=== PATIENT | female | born 1960 | race American Indian/Alaskan Native ===

== ENCOUNTER 2017-12-25 17:10 | Inpatient (IN) | payer OTHER ==
--- NOTE | 2017-12-25 18:51 | Emergency Department Report ---
ED Altered Mental Status HPI - General Chief Complaint: Altered Mental Status Stated Complaint: AMS Time Seen by Provider: 12/25/17 18:51 Source: patient, EMS Mode of arrival: Stretcher Limitations: Altered Mental Status - History of Present Illness Initial Comments: According to the EMS, patient was altered and confused while she was in the mental home. Patient denies any problem currently. MD Complaint: altered mental status, confusion -: Sudden Severity: moderate Consistency of Symptoms: unknown Context: unknown Associated Symptoms: denies other symptoms - Related Data Previous Rx's Medication Instructions Recorded Last Taken Type Cyclobenzaprine HCl [Flexeril 5 MG 5 mg PO PRN #12 tablet 06/19/16 Unknown Rx TAB] Allergies Allergy/AdvReac Type Severity Reaction Status Date / Time No Known Allergies Allergy Unverified 06/19/16 17:33 ED Review of Systems ROS: Stated complaint: AMS Other details as noted in HPI Comment: All other systems reviewed and negative Constitutional: denies: chills, fever Eyes: denies: vision change ENT: denies: ear pain, hearing loss Respiratory: denies: cough, shortness of breath Cardiovascular: denies: chest pain, palpitations Endocrine: no symptoms reported Gastrointestinal: denies: abdominal pain, nausea, vomiting, diarrhea Genitourinary: denies: urgency, frequency Musculoskeletal: denies: back pain, joint swelling Skin: denies: rash, lesions Neurological: confusion. denies: headache, weakness, numbness, paresthesias Psychiatric: denies: anxiety, depression Hematological/Lymphatic: denies: easy bleeding, easy bruising ED Past Medical Hx - Past Medical History Previous Medical History?: Yes Hx Hypertension: Yes Hx Psychiatric Treatment: Yes (depression) - Surgical History Past Surgical History?: Yes Additional Surgical History: knee. - Social History Smoking Status: Never Smoker Substance Use Type: Alcohol - Medications Home Medications: Home Medications Medication Instructions Recorded Confirmed Last Taken Type Cyclobenzaprine HCl [Flexeril 5 MG 5 mg PO PRN #12 tablet 06/19/16 12/25/17 Unknown Rx TAB] ED Physical Exam - General Limitations: Altered Mental Status General appearance: alert, in no apparent distress - Head Head exam: Present: atraumatic, normocephalic, normal inspection - Eye Eye exam: Present: normal appearance, PERRL, EOMI, scleral icterus Pupils: Present: normal accommodation - ENT ENT exam: Present: normal exam, normal orophraynx, mucous membranes moist - Neck Neck exam: Present: normal inspection, full ROM. Absent: tenderness - Respiratory Respiratory exam: Present: normal lung sounds bilaterally. Absent: respiratory distress, wheezes, rhonchi - Cardiovascular Cardiovascular Exam: Present: normal rhythm, tachycardia, normal heart sounds - GI/Abdominal GI/Abdominal exam: Present: soft, normal bowel sounds. Absent: distended, tenderness, guarding, rebound - Extremities Exam Extremities exam: Present: normal inspection, full ROM, normal capillary refill - Back Exam Back exam: Present: normal inspection, full ROM. Absent: tenderness - Neurological Exam Neurological exam: Present: alert, oriented X3, CN II-XII intact - Psychiatric Psychiatric exam: Present: normal affect, flat affect - Skin Skin exam: Present: warm, dry, intact, normal color - Assessment Assessment Interval: Baseline - Level of Consciousness 1a. Level of Consciousness: alert - LOC Questions 1b. LOC Questions: answers 1 question correctly - LOC Command 1c. LOC Commands: performs tasks correctly - Best Gaze 2. Best Gaze: normal - Visual 3. Visual: no visual loss - Facial Palsy 4. Facial Palsy: normal symmetrical movement - Motor Arm 5b. Motor Arm Right: no drift 5a. Motor Arm Left: no drift - Motor Leg 6a. Motor Leg Left: no drift 6b. Motor Leg Right: no drift - Limb Ataxia 7. Limb Ataxia: absent - Sensory 8. Sensory: normal - Best Language 9. Best Language: no aphasia - Dysarthria 10. Dysarthria: normal - Extinction and Inattention 11. Extinction/Inattention: no abnormality - Scoring Total Score: 1 Stroke Severity: Minor Stroke ED Course Vital Signs 12/25/17 12/25/17 18:23 19:46 Temperature 99.4 F Pulse Rate 120 H 120 H Respiratory 16 16 Rate Blood Pressure 126/77 [Left] O2 Sat by Pulse 100 Oximetry - Reevaluation(s) Reevaluation #1: 12/26/17 00:23 I consulted the tele Neurologist conference producer Dr López. He recommed admitting patient in the hospital for further stroke workup. Patient will be admitted by Dr Syeda Luis for further evaluation and management. - Lab Data Result diagrams: 12/25/17 19:07 12/25/17 19:07 Lab Results 12/25/17 12/25/17 12/25/17 Range/Units 19:07 19:07 19:07 WBC 10.6 (4.5-11.0) K/mm3 RBC 2.57 L (3.65-5.03) M/mm3 Hgb 8.9 L (10.1-14.3) gm/dl Hct 26.6 L (30.3-42.9) % MCV 103 H (79-97) fl MCH 35 H (28-32) pg MCHC 34 (30-34) % RDW 18.2 H (13.2-15.2) % Plt Count 175 (140-440) K/mm3 Lymph % (Auto) 17.0 (13.4-35.0) % [place] % (Auto) 10.1 H (0.0-7.3) % Eos % (Auto) 0.3 (0.0-4.3) % Baso % (Auto) 0.4 (0.0-1.8) % Lymph # 1.8 (1.2-5.4) K/mm3 [place] # 1.1 H (0.0-0.8) K/mm3 Eos # 0.0 (0.0-0.4) K/mm3 Baso # 0.0 (0.0-0.1) K/mm3 Seg Neutrophils % 72.2 H (40.0-70.0) % Seg Neutrophils # 7.7 (1.8-7.7) K/mm3 PT (12.2-14.9) Sec. INR (0.87-1.13) APTT (24.2-36.6) Sec. Sodium 130 L (137-145) mmol/L Potassium 4.1 (3.6-5.0) mmol/L Chloride 91.9 L (98-107) mmol/L Carbon Dioxide 21 L (22-30) mmol/L Anion Gap 21 mmol/L BUN 4 L (7-17) mg/dL Creatinine 0.3 L (0.7-1.2) mg/dL Estimated GFR > 60 ml/min BUN/Creatinine Ratio 13 % Glucose 126 H (65-100) mg/dL Calcium 8.2 L (8.4-10.2) mg/dL Magnesium (1.7-2.3) mg/dL Total Bilirubin 6.40 H (0.1-1.2) mg/dL AST 174 H (5-40) units/L ALT 42 (7-56) units/L Alkaline Phosphatase 335 H (35-129) units/L Ammonia (25-60) umol/L Total Protein 8.1 (6.3-8.2) g/dL Albumin 3.4 L (3.9-5) g/dL Albumin/Globulin Ratio 0.7 % TSH 3.670 (0.270-4.200) mlU/mL Urine Color (Yellow) Urine Turbidity (Clear) Urine pH (5.0-7.0) Ur Specific [place] (1.003-1.030) Urine Protein (Negative) mg/dL Urine Glucose (UA) (Negative) mg/dL Urine Ketones (Negative) mg/dL Urine Blood (Negative) Urine Nitrite (Negative) Urine Bilirubin (Negative) Urine Ictotest (Negative) Urine Urobilinogen (<2.0) mg/dL Ur Leukocyte Esterase (Negative) Urine WBC (Auto) (0.0-6.0) /HPF Urine RBC (Auto) (0.0-6.0) /HPF Salicylates (2.8-20.0) mg/dL Urine Opiates Screen Urine Methadone Screen Acetaminophen (10.0-30.0) ug/mL Ur Barbiturates Screen Ur Phencyclidine Scrn Ur Amphetamines Screen U Benzodiazepines Scrn Urine Cocaine Screen U Marijuana (THC) Screen Drugs of Abuse Note Plasma/Serum Alcohol (0-0.07) % 12/25/17 12/25/17 12/25/17 Range/Units 19:07 19:16 19:16 WBC (4.5-11.0) K/mm3 RBC (3.65-5.03) M/mm3 Hgb (10.1-14.3) gm/dl Hct (30.3-42.9) % MCV (79-97) fl MCH (28-32) pg MCHC (30-34) % RDW (13.2-15.2) % Plt Count (140-440) K/mm3 Lymph % (Auto) (13.4-35.0) % [place] % (Auto) (0.0-7.3) % Eos % (Auto) (0.0-4.3) % Baso % (Auto) (0.0-1.8) % Lymph # (1.2-5.4) K/mm3 [place] # (0.0-0.8) K/mm3 Eos # (0.0-0.4) K/mm3 Baso # (0.0-0.1) K/mm3 Seg Neutrophils % (40.0-70.0) % Seg Neutrophils # (1.8-7.7) K/mm3 PT 14.8 (12.2-14.9) Sec. INR 1.10 (0.87-1.13) APTT 36.8 H (24.2-36.6) Sec. Sodium (137-145) mmol/L Potassium (3.6-5.0) mmol/L Chloride (98-107) mmol/L Carbon Dioxide (22-30) mmol/L Anion Gap mmol/L BUN (7-17) mg/dL Creatinine (0.7-1.2) mg/dL Estimated GFR ml/min BUN/Creatinine Ratio % Glucose (65-100) mg/dL Calcium (8.4-10.2) mg/dL Magnesium (1.7-2.3) mg/dL Total Bilirubin (0.1-1.2) mg/dL AST (5-40) units/L ALT (7-56) units/L Alkaline Phosphatase (35-129) units/L Ammonia 79.0 H (25-60) umol/L Total Protein (6.3-8.2) g/dL Albumin (3.9-5) g/dL Albumin/Globulin Ratio % TSH (0.270-4.200) mlU/mL Urine Color (Yellow) Urine Turbidity (Clear) Urine pH (5.0-7.0) Ur Specific [place] (1.003-1.030) Urine Protein (Negative) mg/dL Urine Glucose (UA) (Negative) mg/dL Urine Ketones (Negative) mg/dL Urine Blood (Negative) Urine Nitrite (Negative) Urine Bilirubin (Negative) Urine Ictotest (Negative) Urine Urobilinogen (<2.0) mg/dL Ur Leukocyte Esterase (Negative) Urine WBC (Auto) (0.0-6.0) /HPF Urine RBC (Auto) (0.0-6.0) /HPF Salicylates (2.8-20.0) mg/dL Urine Opiates Screen Urine Methadone Screen Acetaminophen (10.0-30.0) ug/mL Ur Barbiturates Screen Ur Phencyclidine Scrn Ur Amphetamines Screen U Benzodiazepines Scrn Urine Cocaine Screen U Marijuana (THC) Screen Drugs of Abuse Note Plasma/Serum Alcohol < 0.01 (0-0.07) % 12/25/17 12/25/17 12/25/17 Range/Units 19:16 19:16 19:46 WBC (4.5-11.0) K/mm3 RBC (3.65-5.03) M/mm3 Hgb (10.1-14.3) gm/dl Hct (30.3-42.9) % MCV (79-97) fl MCH (28-32) pg MCHC (30-34) % RDW (13.2-15.2) % Plt Count (140-440) K/mm3 Lymph % (Auto) (13.4-35.0) % [place] % (Auto) (0.0-7.3) % Eos % (Auto) (0.0-4.3) % Baso % (Auto) (0.0-1.8) % Lymph # (1.2-5.4) K/mm3 [place] # (0.0-0.8) K/mm3 Eos # (0.0-0.4) K/mm3 Baso # (0.0-0.1) K/mm3 Seg Neutrophils % (40.0-70.0) % Seg Neutrophils # (1.8-7.7) K/mm3 PT (12.2-14.9) Sec. INR (0.87-1.13) APTT (24.2-36.6) Sec. Sodium (137-145) mmol/L Potassium (3.6-5.0) mmol/L Chloride (98-107) mmol/L Carbon Dioxide (22-30) mmol/L Anion Gap mmol/L BUN (7-17) mg/dL Creatinine (0.7-1.2) mg/dL Estimated GFR ml/min BUN/Creatinine Ratio % Glucose (65-100) mg/dL Calcium (8.4-10.2) mg/dL Magnesium (1.7-2.3) mg/dL Total Bilirubin (0.1-1.2) mg/dL AST (5-40) units/L ALT (7-56) units/L Alkaline Phosphatase (35-129) units/L Ammonia (25-60) umol/L Total Protein (6.3-8.2) g/dL Albumin (3.9-5) g/dL Albumin/Globulin Ratio % TSH (0.270-4.200) mlU/mL Urine Color [place] (Yellow) Urine Turbidity Clear (Clear) Urine pH 8.0 H (5.0-7.0) Ur Specific [place] 1.006 (1.003-1.030) Urine Protein <15 mg/dl (Negative) mg/dL Urine Glucose (UA) Neg (Negative) mg/dL Urine Ketones Neg (Negative) mg/dL Urine Blood Neg (Negative) Urine Nitrite Neg (Negative) Urine Bilirubin Sm (Negative) Urine Ictotest Negative (Negative) Urine Urobilinogen 4.0 (<2.0) mg/dL Ur Leukocyte Esterase Tr (Negative) Urine WBC (Auto) < 1.0 (0.0-6.0) /HPF Urine RBC (Auto) < 1.0 (0.0-6.0) /HPF Salicylates < 0.3 L (2.8-20.0) mg/dL Urine Opiates Screen Urine Methadone Screen Acetaminophen < 5.0 L (10.0-30.0) ug/mL Ur Barbiturates Screen Ur Phencyclidine Scrn Ur Amphetamines Screen U Benzodiazepines Scrn Urine Cocaine Screen U Marijuana (THC) Screen Drugs of Abuse Note Plasma/Serum Alcohol (0-0.07) % 12/25/17 12/25/17 Range/Units 19:46 20:41 WBC (4.5-11.0) K/mm3 RBC (3.65-5.03) M/mm3 Hgb (10.1-14.3) gm/dl Hct (30.3-42.9) % MCV (79-97) fl MCH (28-32) pg MCHC (30-34) % RDW (13.2-15.2) % Plt Count (140-440) K/mm3 Lymph % (Auto) (13.4-35.0) % [place] % (Auto) (0.0-7.3) % Eos % (Auto) (0.0-4.3) % Baso % (Auto) (0.0-1.8) % Lymph # (1.2-5.4) K/mm3 [place] # (0.0-0.8) K/mm3 Eos # (0.0-0.4) K/mm3 Baso # (0.0-0.1) K/mm3 Seg Neutrophils % (40.0-70.0) % Seg Neutrophils # (1.8-7.7) K/mm3 PT (12.2-14.9) Sec. INR (0.87-1.13) APTT (24.2-36.6) Sec. Sodium (137-145) mmol/L Potassium (3.6-5.0) mmol/L Chloride (98-107) mmol/L Carbon Dioxide (22-30) mmol/L Anion Gap mmol/L BUN (7-17) mg/dL Creatinine (0.7-1.2) mg/dL Estimated GFR ml/min BUN/Creatinine Ratio % Glucose (65-100) mg/dL Calcium (8.4-10.2) mg/dL Magnesium 1.40 L (1.7-2.3) mg/dL Total Bilirubin (0.1-1.2) mg/dL AST (5-40) units/L ALT (7-56) units/L Alkaline Phosphatase (35-129) units/L Ammonia (25-60) umol/L Total Protein (6.3-8.2) g/dL Albumin (3.9-5) g/dL Albumin/Globulin Ratio % TSH (0.270-4.200) mlU/mL Urine Color (Yellow) Urine Turbidity (Clear) Urine pH (5.0-7.0) Ur Specific [place] (1.003-1.030) Urine Protein (Negative) mg/dL Urine Glucose (UA) (Negative) mg/dL Urine Ketones (Negative) mg/dL Urine Blood (Negative) Urine Nitrite (Negative) Urine Bilirubin (Negative) Urine Ictotest (Negative) Urine Urobilinogen (<2.0) mg/dL Ur Leukocyte Esterase (Negative) Urine WBC (Auto) (0.0-6.0) /HPF Urine RBC (Auto) (0.0-6.0) /HPF Salicylates (2.8-20.0) mg/dL Urine Opiates Screen Presumptive negative Urine Methadone Screen Presumptive negative Acetaminophen (10.0-30.0) ug/mL Ur Barbiturates Screen Presumptive negative Ur Phencyclidine Scrn Presumptive negative Ur Amphetamines Screen Presumptive negative U Benzodiazepines Scrn Presumptive negative Urine Cocaine Screen Presumptive negative U Marijuana (THC) Screen Presumptive negative Drugs of Abuse Note Disclamer Plasma/Serum Alcohol (0-0.07) % - EKG Data -: EKG Interpreted by Me EKG shows normal: sinus rhythm Rate: tachycardia (110) When compared to previous EKG there are: previous EKG unavailable Interpretation: nonspecific ST-T wave jean pierre, other (Prolonged QT. No STEMI.) - Radiology Data Radiology results: report reviewed, image reviewed - Medical Decision Making Altered mental status. Critical Care Time: Yes Critical care time in (mins) excluding proc time.: 35 Critical care attestation.: If time is entered above; I have spent that time in minutes in the direct care of this critically ill patient, excluding procedure time. ED Disposition Clinical Impression: Acute hepatic encephalopathy TIA (transient ischemic attack) Qualifiers: Transient cerebral ischemia type: unspecified Qualified Code(s): G45.9 - Transient cerebral ischemic attack, unspecified Disposition: DC-09 OP ADMIT IP TO THIS HOSP Is pt being admited?: Yes Does the pt Need Aspirin: Yes Condition: Stable Referrals: PRIMARY CARE,MD [Primary Care Provider] - 3-5 Days
[2017-12-25 20:01] LABS: Basophils % (Auto) 0.4 % (0.0-1.8); Eosinophils % (Auto) 0.3 % (0.0-4.3); Hematocrit 26.6 % (30.3-42.9); Hemoglobin 8.9 gm/dl (10.1-14.3); Lymphocytes # (Auto) 1.8 K/mm3 (1.2-5.4); Mean Corpuscular HGB Conc 34 % (30-34); Mean Corpuscular Hemoglobin 35 pg (28-32); Mean Corpuscular Volume 103 fl (79-97); Monocytes # (Auto) 1.1 K/mm3 (0.0-0.8); Monocytes % (Auto) 10.1 % (0.0-7.3); Platelet Count 175 K/mm3 (140-440); Red Blood Count 2.57 M/mm3 (3.65-5.03); Red Cell Distribution Width 18.2 % (13.2-15.2)
[2017-12-25 20:05] LABS: INR 1.1 (0.87-1.13); Partial Thromboplastin Time 36.8 Sec. (24.2-36.6)
[2017-12-25 20:15] LABS: Bilirubin,Urine SM (Negative); Blood,Urine NEG (Negative); Color,Urine Amber (Yellow); Protein,Urine <15 mg/dL mg/dL (Negative); RBC,Urine < 1.0 /HPF (0.0-6.0); WBC,Urine < 1.0 /HPF (0.0-6.0)
[2017-12-25 20:20] LABS: Ictotest,Urine Negative (Negative)
[2017-12-25 20:20] LABS: Alanine Aminotransferase 42 units/L (7-56); Albumin 3.4 g/dL (3.9-5); BUN/Creatinine Ratio 13; Blood Urea Nitrogen 4 mg/dL (7-17); Calcium 8.2 mg/dL (8.4-10.2); Hemolysis Index 15
[2017-12-25 20:29] LABS: Amphetamine Screen,Urine PRESUMPTIVE NEGATIVE; Benzodiazepines Screen,Urine PRESUMPTIVE NEGATIVE; Cannabinoid Screen,Urine PRESUMPTIVE NEGATIVE; Cocaine Screen,Urine PRESUMPTIVE NEGATIVE; Methadone Screen,Urine PRESUMPTIVE NEGATIVE; Opiate Screen,Urine PRESUMPTIVE NEGATIVE
--- NOTE | 2017-12-25 21:10 | Cat Scan Report ---
FINAL REPORT PROCEDURE: CT HEAD/BRAIN WO CON TECHNIQUE: Computerized tomography of the head was performed without contrast material. HISTORY: altered mental status COMPARISON: No prior studies are available for comparison. FINDINGS: Cerebral sulci and ventricles are prominent consistent with cerebral atrophy slightly advanced for patient's age. An acute intra-axial or extra-axial hemorrhage is not identified. There is no mass effect. Visualized bilateral paranasal sinuses and mastoid air cells are clear. Bones are intact. IMPRESSION: Cerebral atrophy advanced for patient's age. No acute intracranial abnormality.
--- NOTE | 2017-12-25 21:23 | XRay Report ---
FINAL REPORT EXAM: XR CHEST 1V AP HISTORY: altered mental status TECHNIQUE: Portable frontal chest x-ray performed upright Comparison: None FINDINGS: Normal heart size. Lungs are clear and well expanded without focal infiltrate or consolidation. Imaged axial skeleton is unremarkable. IMPRESSION: No acute cardiopulmonary disease.
--- NOTE | 2017-12-25 21:32 | Ultrasound Report ---
FINAL REPORT PROCEDURE: US ABDOMEN LIMITED TECHNIQUE: Real-time sonography was performed of the with image documentation. CPT 92797 HISTORY: Icterus COMPARISON: No prior studies are available for comparison. FINDINGS: There is diffuse fatty infiltration of liver with mild degree hepatomegaly. Right kidney demonstrates normal echotexture without calculi or hydronephrosis. It measures 11 x 4 x 6 centimeters. Gallbladder is well distended with normal outlines are normal wall thickness without calculi or pericholecystic collections. Common duct is 4 millimeters in caliber. Pancreas is not well visualized due to poor window. IMPRESSION: Hepatomegaly with fatty infiltration
[2017-12-25] MEDS ORDERED: MAGNESIUM SULFATE 1 GM in NACL 0.9% 50 ML IV ONE (21:56)
--- NOTE | 2017-12-25 23:26 | History and Physical Report ---
History of Present Illness Date of examination: 12/25/17 History of present illness: 57 year old woman with history of hypertension, alcohol abuse was sent fr[facility] for evaluation of altered mental statu. Patient is back to baseline Review of systems Constitutional: no weight loss, chills Ears, eyes, nose, mouth and throat: no nasal congestion, no nasal discharge, no sinus pressure, no vision change, no red eye. Neck: No neck pain or rigidity. Cardiovascular: no chest pain, palpitations Respiratory: No cough, shortness of breath Gastrointestinal: no hematochezia Genitourinary : no dysuria, frequency , no hematuria Musculoskeletal: no joint swelling or muscle ache Integumentary: no rash, no pruritis Neurological: no parathesias, no numbness, no focal weakness Endocrine: no cold or heat intolerance, no polyuria or polydipsia Hematologic/Lymphatic: no easy bruising, no easy bleeding, no gland swelling Allergic/Immunologic: no urticaria, no angioedema. PAST MEDICAL HISTORY: hypertension, alcohol abuse PAST SURGICAL HISTORY: None SOCIAL HISTORY: Denies tobacco, , drugs, + alcohol use FAMILY HISTORY: Hypertension Medications and Allergies Allergies Allergy/AdvReac Type Severity Reaction Status Date / Time No Known Allergies Allergy Unverified 06/19/16 17:33 Home Medications Medication Instructions Recorded Confirmed Last Taken Type Cyclobenzaprine HCl [Flexeril 5 MG 5 mg PO PRN #12 tablet 06/19/16 12/25/17 Unknown Rx TAB] Exam - Physical Exam Narrative exam: Gen. appearance: Patient lying in bed, no apparent distress HEENT: Normocephalic, atraumatic, pupils equally round and reactive to light, extraocular movement intact, and no sclericterus,. No JVD or thyromegaly or nodule,neck supple, no carotid bruit ,mucous membranes dry, no exudate or erythema Heart: S1, S2, regular rate and rhythm Lungs: Clear to auscultation bilaterally, breathing comfortable Abdomen: Positive bowel sounds, nontender, nondistended, no organomegaly Extremity: No edema, cyanosis, clubbing Skin: No rash, nodules, warm, dry Neuro: Oriented 3, cranial nerves II-12 intact, speech is fluent, motor and sensory intact - Constitutional Vitals: Temp Pulse Resp BP Pulse Ox 99.4 F 120 H 16 126/77 100 12/25/17 18:23 12/25/17 19:46 12/25/17 19:46 12/25/17 18:23 12/25/17 18:23 Results - Labs CBC & Chem 7: 12/25/17 19:07 12/25/17 19:07 Labs: Abnormal lab results 12/25/17 12/25/17 12/25/17 Range/Units 19:07 19:07 19:16 RBC 2.57 L (3.65-5.03) M/mm3 Hgb 8.9 L (10.1-14.3) gm/dl Hct 26.6 L (30.3-42.9) % MCV 103 H (79-97) fl MCH 35 H (28-32) pg RDW 18.2 H (13.2-15.2) % [place] % (Auto) 10.1 H (0.0-7.3) % [place] # 1.1 H (0.0-0.8) K/mm3 Seg Neutrophils % 72.2 H (40.0-70.0) % APTT 36.8 H (24.2-36.6) Sec. Sodium 130 L (137-145) mmol/L Chloride 91.9 L (98-107) mmol/L Carbon Dioxide 21 L (22-30) mmol/L BUN 4 L (7-17) mg/dL Creatinine 0.3 L (0.7-1.2) mg/dL Glucose 126 H (65-100) mg/dL Calcium 8.2 L (8.4-10.2) mg/dL Magnesium (1.7-2.3) mg/dL Total Bilirubin 6.40 H (0.1-1.2) mg/dL AST 174 H (5-40) units/L Alkaline Phosphatase 335 H (35-129) units/L Ammonia (25-60) umol/L Albumin 3.4 L (3.9-5) g/dL Urine pH (5.0-7.0) Salicylates (2.8-20.0) mg/dL Acetaminophen (10.0-30.0) ug/mL 12/25/17 12/25/17 12/25/17 Range/Units 19:16 19:16 19:16 RBC (3.65-5.03) M/mm3 Hgb (10.1-14.3) gm/dl Hct (30.3-42.9) % MCV (79-97) fl MCH (28-32) pg RDW (13.2-15.2) % [place] % (Auto) (0.0-7.3) % [place] # (0.0-0.8) K/mm3 Seg Neutrophils % (40.0-70.0) % APTT (24.2-36.6) Sec. Sodium (137-145) mmol/L Chloride (98-107) mmol/L Carbon Dioxide (22-30) mmol/L BUN (7-17) mg/dL Creatinine (0.7-1.2) mg/dL Glucose (65-100) mg/dL Calcium (8.4-10.2) mg/dL Magnesium (1.7-2.3) mg/dL Total Bilirubin (0.1-1.2) mg/dL AST (5-40) units/L Alkaline Phosphatase (35-129) units/L Ammonia 79.0 H (25-60) umol/L Albumin (3.9-5) g/dL Urine pH (5.0-7.0) Salicylates < 0.3 L (2.8-20.0) mg/dL Acetaminophen < 5.0 L (10.0-30.0) ug/mL 12/25/17 12/25/17 Range/Units 19:46 20:41 RBC (3.65-5.03) M/mm3 Hgb (10.1-14.3) gm/dl Hct (30.3-42.9) % MCV (79-97) fl MCH (28-32) pg RDW (13.2-15.2) % [place] % (Auto) (0.0-7.3) % [place] # (0.0-0.8) K/mm3 Seg Neutrophils % (40.0-70.0) % APTT (24.2-36.6) Sec. Sodium (137-145) mmol/L Chloride (98-107) mmol/L Carbon Dioxide (22-30) mmol/L BUN (7-17) mg/dL Creatinine (0.7-1.2) mg/dL Glucose (65-100) mg/dL Calcium (8.4-10.2) mg/dL Magnesium 1.40 L (1.7-2.3) mg/dL Total Bilirubin (0.1-1.2) mg/dL AST (5-40) units/L Alkaline Phosphatase (35-129) units/L Ammonia (25-60) umol/L Albumin (3.9-5) g/dL Urine pH 8.0 H (5.0-7.0) Salicylates (2.8-20.0) mg/dL Acetaminophen (10.0-30.0) ug/mL - Imaging and Cardiology Chest x-ray: report reviewed CT Scan - head: report reviewed Assessment and Plan Assessment Encephalopathy? TIA hypertension Alcohol abuse Plan Admit to medicine Obtain MRI head, carotid doppler, echo Start aspirin, statin Consultt neuro, PT/OT Start CIWA protocol DVT prophalaxis
[2017-12-25] MEDS ORDERED: ZOFRAN IV PRN (23:27)
[2017-12-25] MEDS ORDERED: SODIUM CHLORIDE FLUSH SYRINGE 10 ML IV PRN (23:27)
[2017-12-25] MEDS ORDERED: TYLENOL PO PRN (23:27)
[2017-12-25] MEDS ORDERED: MILK OF MAGNESIA PO PRN (23:27)
[2017-12-25] MEDS ORDERED: DULCOLAX PR PRN (23:27)
[2017-12-26 01:57] LABS: Chol/HDL Ratio 10.66 %
[2017-12-26] MEDS: ATIVAN IV PRN ×3 (02:28→21:28)
[2017-12-26] MEDS ORDERED: ATIVAN ONE (07:03)
[2017-12-26] MEDS ORDERED: MAGNESIUM SULFATE 2GM/50ML 2 GM/50 ML BAG IV ONE (09:22)
[2017-12-26] MEDS ORDERED: NACL 0.9% 1000 ML 1,000 ML IV SCH (10:00)
[2017-12-26] MEDS: ASPIRIN PO SCH (15:36)
--- NOTE | 2017-12-26 16:50 | Progress Note ---
Assessment and Plan Assessment and plan: 57 year old woman with history of hypertension, alcohol abuse was sent fron [place] for evaluation of altered mental statu. Patient is back to baseline. Acute metabolic encephalopathy ? TIA - We'll have stroke workup - Neurology consulted - Mental health stocking inspector said she doesn't need inpatient psych - We'll follow MRI results Alcohol abuse - Patient has elevated AST, and hepatomegaly with fatty infiltration - Patient is counseled about cessation of alcohol Hyponatremia - IV fluid Hyperlipidemia - We will start on statin once LFTs getting better Disposition - continue inpatient care. History Interval history: Patient was seen and evaluated this morning, patient didn't have any complaints. He was calm and cooperative during examination. Hospitalist Physical - Physical exam Narrative exam: Not in cardiopulmonary distress. The patient appeared well nourished and normally developed. Vital signs as documented. Head exam is unremarkable. No scleral icterus . Neck is without jugular venous distension, thyromegaly, or carotid bruits. Lungs are clear to auscultation. Cardiac exam reveals regular rate and Rhythm. First and second heart sounds normal. No murmurs, rubs or gallops. Abdominal exam reveals normal bowel sounds, no masses, no organomegaly and no aortic enlargement. Extremities are nonedematous and both femoral and pedal pulses are normal. 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 No focal weakness. - Constitutional Vitals: Temp Pulse Resp BP Pulse Ox 98.5 F 119 H 18 129/76 98 12/26/17 07:25 12/26/17 07:25 12/26/17 07:25 12/26/17 07:25 12/26/17 07:25 Results - Labs CBC & Chem 7: 12/25/17 19:07 12/25/17 19:07 Labs: Laboratory Last Values WBC 10.6 K/mm3 (4.5-11.0) 12/25/17 19:07 RBC 2.57 M/mm3 (3.65-5.03) L 12/25/17 19:07 Hgb 8.9 gm/dl (10.1-14.3) L 12/25/17 19:07 Hct 26.6 % (30.3-42.9) L 12/25/17 19:07 MCV 103 fl (79-97) H 12/25/17 19:07 MCH 35 pg (28-32) H 12/25/17 19:07 MCHC 34 % (30-34) 12/25/17 19:07 RDW 18.2 % (13.2-15.2) H 12/25/17 19:07 Plt Count 175 K/mm3 (140-440) 12/25/17 19:07 Lymph % (Auto) 17.0 % (13.4-35.0) 12/25/17 19:07 [place] % (Auto) 10.1 % (0.0-7.3) H 12/25/17 19:07 Eos % (Auto) 0.3 % (0.0-4.3) 12/25/17 19:07 Baso % (Auto) 0.4 % (0.0-1.8) 12/25/17 19:07 Lymph # 1.8 K/mm3 (1.2-5.4) 12/25/17 19:07 [place] # 1.1 K/mm3 (0.0-0.8) H 12/25/17 19:07 Eos # 0.0 K/mm3 (0.0-0.4) 12/25/17 19:07 Baso # 0.0 K/mm3 (0.0-0.1) 12/25/17 19:07 Seg Neutrophils % 72.2 % (40.0-70.0) H 12/25/17 19:07 Seg Neutrophils # 7.7 K/mm3 (1.8-7.7) 12/25/17 19:07 PT 14.8 Sec. (12.2-14.9) 12/25/17 19:16 INR 1.10 (0.87-1.13) 12/25/17 19:16 APTT 36.8 Sec. (24.2-36.6) H 12/25/17 19:16 Sodium 130 mmol/L (137-145) L 12/25/17 19:07 Potassium 4.1 mmol/L (3.6-5.0) 12/25/17 19:07 Chloride 91.9 mmol/L (98-107) L 12/25/17 19:07 Carbon Dioxide 21 mmol/L (22-30) L 12/25/17 19:07 Anion Gap 21 mmol/L 12/25/17 19:07 BUN 4 mg/dL (7-17) L 12/25/17 19:07 Creatinine 0.3 mg/dL (0.7-1.2) L 12/25/17 19:07 Estimated GFR > 60 ml/min 12/25/17 19:07 BUN/Creatinine Ratio 13 % 12/25/17 19:07 Glucose 126 mg/dL (65-100) H 12/25/17 19:07 Calcium 8.2 mg/dL (8.4-10.2) L 12/25/17 19:07 Magnesium 1.40 mg/dL (1.7-2.3) L 12/25/17 20:41 Total Bilirubin 6.40 mg/dL (0.1-1.2) H 12/25/17 19:07 AST 174 units/L (5-40) H 12/25/17 19:07 ALT 42 units/L (7-56) 12/25/17 19:07 Alkaline Phosphatase 335 units/L (35-129) H 12/25/17 19:07 Ammonia 52.0 umol/L (25-60) 12/26/17 00:18 Total Protein 8.1 g/dL (6.3-8.2) 12/25/17 19:07 Albumin 3.4 g/dL (3.9-5) L 12/25/17 19:07 Albumin/Globulin Ratio 0.7 % 12/25/17 19:07 Triglycerides 109 mg/dL (2-149) 12/26/17 00:18 Cholesterol 320 mg/dL (50-199) H 12/26/17 00:18 LDL Cholesterol Direct 221 mg/dL (50-130) H 12/26/17 00:18 HDL Cholesterol 30 mg/dL (40-59) L 12/26/17 00:18 Cholesterol/HDL Ratio 10.66 % 12/26/17 00:18 TSH 3.670 mlU/mL (0.270-4.200) 12/25/17 19:07 Urine Color [place] (Yellow) 12/25/17 19:46 Urine Turbidity Clear (Clear) 12/25/17 19:46 Urine pH 8.0 (5.0-7.0) H 12/25/17 19:46 Ur Specific [place] 1.006 (1.003-1.030) 12/25/17 19:46 Urine Protein <15 mg/dl mg/dL (Negative) 12/25/17 19:46 Urine Glucose (UA) Neg mg/dL (Negative) 12/25/17 19:46 Urine Ketones Neg mg/dL (Negative) 12/25/17 19:46 Urine Blood Neg (Negative) 12/25/17 19:46 Urine Nitrite Neg (Negative) 12/25/17 19:46 Urine Bilirubin Sm (Negative) 12/25/17 19:46 Urine Ictotest Negative (Negative) 12/25/17 19:46 Urine Urobilinogen 4.0 mg/dL (<2.0) 12/25/17 19:46 Ur Leukocyte Esterase Tr (Negative) 12/25/17 19:46 Urine WBC (Auto) < 1.0 /HPF (0.0-6.0) 12/25/17 19:46 Urine RBC (Auto) < 1.0 /HPF (0.0-6.0) 12/25/17 19:46 Salicylates < 0.3 mg/dL (2.8-20.0) L 12/25/17 19:16 Urine Opiates Screen Presumptive negative 12/25/17 19:46 Urine Methadone Screen Presumptive negative 12/25/17 19:46 Acetaminophen < 5.0 ug/mL (10.0-30.0) L 12/25/17 19:16 Ur Barbiturates Screen Presumptive negative 12/25/17 19:46 Ur Phencyclidine Scrn Presumptive negative 12/25/17 19:46 Ur Amphetamines Screen Presumptive negative 12/25/17 19:46 U Benzodiazepines Scrn Presumptive negative 12/25/17 19:46 Urine Cocaine Screen Presumptive negative 12/25/17 19:46 U Marijuana (THC) Screen Presumptive negative 12/25/17 19:46 Drugs of Abuse Note Disclamer 12/25/17 19:46 Plasma/Serum Alcohol < 0.01 % (0-0.07) 12/25/17 19:07
[2017-12-26] MEDS: LOVENOX SUB-Q SCH (17:36)
[2017-12-26] MEDS: PRAVACHOL PO SCH (21:29)
[2017-12-27] MEDS: ATIVAN IV PRN ×2 (01:30→05:53)
[2017-12-27] MEDS ORDERED: APRESOLINE IV PRN (05:40)
[2017-12-27 06:05] LABS: Basophils % (Auto) 0.2 % (0.0-1.8); Eosinophils # (Auto) 0.1 K/mm3 (0.0-0.4); Eosinophils % (Auto) 0.5 % (0.0-4.3); Hematocrit 26.7 % (30.3-42.9); Hemoglobin 9.1 gm/dl (10.1-14.3); Lymphocytes # (Auto) 1.6 K/mm3 (1.2-5.4); Lymphocytes % (Auto) 16.3 % (13.4-35.0); Mean Corpuscular HGB Conc 34 % (30-34); Mean Corpuscular Hemoglobin 35 pg (28-32); Mean Corpuscular Volume 102 fl (79-97); Monocytes # (Auto) 1.3 K/mm3 (0.0-0.8); Monocytes % (Auto) 12.6 % (0.0-7.3); Platelet Count 167 K/mm3 (140-440); Red Blood Count 2.62 M/mm3 (3.65-5.03); Red Cell Distribution Width 17.4 % (13.2-15.2)
[2017-12-27 06:33] LABS: Alanine Aminotransferase 36 units/L (7-56); Albumin 3.2 g/dL (3.9-5); BUN/Creatinine Ratio 10; Blood Urea Nitrogen 2 mg/dL (7-17); Calcium 8.6 mg/dL (8.4-10.2); Hemolysis Index 1
[2017-12-27] MEDS ORDERED: K-DUR PO NR (08:30)
[2017-12-27] MEDS: FOLVITE PO SCH (10:21)
[2017-12-27] MEDS: VITAMIN B-1 PO SCH (10:21)
[2017-12-27] MEDS: ASPIRIN PO SCH (10:21)
[2017-12-27] MEDS: LOVENOX SUB-Q SCH (10:21)
--- NOTE | 2017-12-27 14:49 | Vascular Lab Report ---
CAROTID DUPLEX STUDY: RIGHT PSVEDV CCA PROX:9616 CCA DIST:7118 ICA PROX:5214 ICA MID:8330 ICA DIST:9430 ECA: 5411 VERT: 56 16 LEFT PSVEDV CCA PROX:22627 CCA DIST:7823 ICA PROX:6322 ICA MID:7619 ICA DIST:7123 ECA: 6515 VERT: 52 18 REASON FOR EXAM: Stroke. COMMENTS ON THE RIGHT: Doppler frequency analysis is consistent with 16 to 49 percent diameter reduction of the internal carotid artery. Minimal amount of plaque is seen. The common carotid artery is patent. The external carotid artery is patent. The vertebral artery has antegrade flow. COMMENTS ON THE LEFT: Doppler frequency analysis is consistent with 16 to 49 percent diameter reduction of the internal carotid artery. Minimal amount of plaque is seen. The common carotid artery is patent. The external carotid artery is patent. The vertebral artery has antegrade flow. IMPRESSION: Less than 50% diameter reduction in the internal carotid arteries bilaterally.
--- NOTE | 2017-12-27 16:46 | Progress Note ---
Assessment and Plan Assessment and plan: 57 year old woman with history of hypertension, alcohol abuse was sent fron [place] for evaluation of altered mental statu. Patient is back to baseline. Acute metabolic encephalopathy ? TIA - We'll have stroke workup - Neurology consulted - Mental health principal librarian said she doesn't need inpatient psych - We'll follow MRI results Alcohol abuse - Patient has elevated AST, and hepatomegaly with fatty infiltration - Patient is counseled about cessation of alcohol Hyponatremia - IV fluid Hyperlipidemia - currently on pravastatin and will start strong statins once the LFT normalized. Disposition - continue inpatient care. History Interval history: Patient was seen and evaluated this morning, patient didn't have any complaints. He was calm and cooperative during examination. Hospitalist Physical - Physical exam Narrative exam: Not in cardiopulmonary distress. The patient appeared well nourished and normally developed. Vital signs as documented. Head exam is unremarkable. No scleral icterus . Neck is without jugular venous distension, thyromegaly, or carotid bruits. Lungs are clear to auscultation. Cardiac exam reveals regular rate and Rhythm. First and second heart sounds normal. No murmurs, rubs or gallops. Abdominal exam reveals normal bowel sounds, no masses, no organomegaly and no aortic enlargement. Extremities are nonedematous and both femoral and pedal pulses are normal. 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 - Constitutional Vitals: Temp Pulse Resp BP Pulse Ox 99.5 F 111 H 20 138/82 100 12/27/17 08:00 12/27/17 08:21 12/27/17 08:21 12/27/17 08:21 12/27/17 08:21 Results - Labs CBC & Chem 7: 12/27/17 05:28 12/27/17 05:28 Labs: Laboratory Last Values WBC 9.9 K/mm3 (4.5-11.0) 12/27/17 05:28 RBC 2.62 M/mm3 (3.65-5.03) L 12/27/17 05:28 Hgb 9.1 gm/dl (10.1-14.3) L 12/27/17 05:28 Hct 26.7 % (30.3-42.9) L 12/27/17 05:28 MCV 102 fl (79-97) H 12/27/17 05:28 MCH 35 pg (28-32) H 12/27/17 05:28 MCHC 34 % (30-34) 12/27/17 05:28 RDW 17.4 % (13.2-15.2) H 12/27/17 05:28 Plt Count 167 K/mm3 (140-440) 12/27/17 05:28 Lymph % (Auto) 16.3 % (13.4-35.0) 12/27/17 05:28 [place] % (Auto) 12.6 % (0.0-7.3) H 12/27/17 05:28 Eos % (Auto) 0.5 % (0.0-4.3) 12/27/17 05:28 Baso % (Auto) 0.2 % (0.0-1.8) 12/27/17 05:28 Lymph # 1.6 K/mm3 (1.2-5.4) 12/27/17 05:28 [place] # 1.3 K/mm3 (0.0-0.8) H 12/27/17 05:28 Eos # 0.1 K/mm3 (0.0-0.4) 12/27/17 05:28 Baso # 0.0 K/mm3 (0.0-0.1) 12/27/17 05:28 Seg Neutrophils % 70.4 % (40.0-70.0) H 12/27/17 05:28 Seg Neutrophils # 7.0 K/mm3 (1.8-7.7) 12/27/17 05:28 PT 14.8 Sec. (12.2-14.9) 12/25/17 19:16 INR 1.10 (0.87-1.13) 12/25/17 19:16 APTT 36.8 Sec. (24.2-36.6) H 12/25/17 19:16 Sodium 138 mmol/L (137-145) D 12/27/17 05:28 Potassium 3.2 mmol/L (3.6-5.0) L D 12/27/17 05:28 Chloride 98.4 mmol/L (98-107) 12/27/17 05:28 Carbon Dioxide 22 mmol/L (22-30) 12/27/17 05:28 Anion Gap 21 mmol/L 12/27/17 05:28 BUN 2 mg/dL (7-17) L 12/27/17 05:28 Creatinine 0.2 mg/dL (0.7-1.2) L 12/27/17 05:28 Estimated GFR > 60 ml/min 12/27/17 05:28 BUN/Creatinine Ratio 10 % 12/27/17 05:28 Glucose 91 mg/dL (65-100) 12/27/17 05:28 POC Glucose 97 (70-105) 12/27/17 11:37 Calcium 8.6 mg/dL (8.4-10.2) 12/27/17 05:28 Magnesium 1.40 mg/dL (1.7-2.3) L 12/25/17 20:41 Total Bilirubin 6.60 mg/dL (0.1-1.2) H 12/27/17 05:28 AST 126 units/L (5-40) H 12/27/17 05:28 ALT 36 units/L (7-56) 12/27/17 05:28 Alkaline Phosphatase 286 units/L (35-129) H 12/27/17 05:28 Ammonia 52.0 umol/L (25-60) 12/26/17 00:18 Total Protein 8.3 g/dL (6.3-8.2) H 12/27/17 05:28 Albumin 3.2 g/dL (3.9-5) L 12/27/17 05:28 Albumin/Globulin Ratio 0.6 % 12/27/17 05:28 Triglycerides 109 mg/dL (2-149) 12/26/17 00:18 Cholesterol 320 mg/dL (50-199) H 12/26/17 00:18 LDL Cholesterol Direct 221 mg/dL (50-130) H 12/26/17 00:18 HDL Cholesterol 30 mg/dL (40-59) L 12/26/17 00:18 Cholesterol/HDL Ratio 10.66 % 12/26/17 00:18 TSH 3.670 mlU/mL (0.270-4.200) 12/25/17 19:07 Urine Color [place] (Yellow) 12/25/17 19:46 Urine Turbidity Clear (Clear) 12/25/17 19:46 Urine pH 8.0 (5.0-7.0) H 12/25/17 19:46 Ur Specific [place] 1.006 (1.003-1.030) 12/25/17 19:46 Urine Protein <15 mg/dl mg/dL (Negative) 12/25/17 19:46 Urine Glucose (UA) Neg mg/dL (Negative) 12/25/17 19:46 Urine Ketones Neg mg/dL (Negative) 12/25/17 19:46 Urine Blood Neg (Negative) 12/25/17 19:46 Urine Nitrite Neg (Negative) 12/25/17 19:46 Urine Bilirubin Sm (Negative) 12/25/17 19:46 Urine Ictotest Negative (Negative) 12/25/17 19:46 Urine Urobilinogen 4.0 mg/dL (<2.0) 12/25/17 19:46 Ur Leukocyte Esterase Tr (Negative) 12/25/17 19:46 Urine WBC (Auto) < 1.0 /HPF (0.0-6.0) 12/25/17 19:46 Urine RBC (Auto) < 1.0 /HPF (0.0-6.0) 12/25/17 19:46 Salicylates < 0.3 mg/dL (2.8-20.0) L 12/25/17 19:16 Urine Opiates Screen Presumptive negative 12/25/17 19:46 Urine Methadone Screen Presumptive negative 12/25/17 19:46 Acetaminophen < 5.0 ug/mL (10.0-30.0) L 12/25/17 19:16 Ur Barbiturates Screen Presumptive negative 12/25/17 19:46 Ur Phencyclidine Scrn Presumptive negative 12/25/17 19:46 Ur Amphetamines Screen Presumptive negative 12/25/17 19:46 U Benzodiazepines Scrn Presumptive negative 12/25/17 19:46 Urine Cocaine Screen Presumptive negative 12/25/17 19:46 U Marijuana (THC) Screen Presumptive negative 12/25/17 19:46 Drugs of Abuse Note Disclamer 12/25/17 19:46 Plasma/Serum Alcohol < 0.01 % (0-0.07) 12/25/17 19:07
[2017-12-27] MEDS ORDERED: K-DUR PO ONE (18:00)
[2017-12-27] MEDS: PRAVACHOL PO SCH (22:08)
[2017-12-28 06:55] LABS: Alanine Aminotransferase 29 units/L (7-56); Albumin 2.8 g/dL (3.9-5); BUN/Creatinine Ratio 15; Blood Urea Nitrogen 3 mg/dL (7-17); Calcium 8.6 mg/dL (8.4-10.2); Hemolysis Index 0
--- NOTE | 2017-12-28 09:21 | Discharge Summary ---
Providers - Providers Date of Admission: 12/25/17 23:29 Date of discharge: 12/28/17 Attending physician: ROSALINE SCHROEDER MD 12/25/17 23:29 Occupational Therapy Evaluate and Treat [CONS] Routine Comment: Reason For Exam: Neuro deficits Physical Therapy Evaluation and Treat [CONS] Routine Comment: Reason For Exam: Neuro deficits 12/26/17 09:26 Consult to Mental Health [CONS] Routine Reason For Exam: Patient is from [place], here for [facility] Place consult to:: mental health Notified:: YES Phone number called:: [phone] Was contact made?: Yes Time called:: 11:29 12/27/17 16:40 Consult to Physician [CONS] Routine Comment: Consulting Provider: SHEN ASCENCIO Physician Instructions: Reason For Exam: altered mental status Primary care physician: DIRECTOR EMBALMER Hospitalization Reason for admission: Alcohol withdrawal Condition: Stable Pertinent studies: CT head, carotid doppler, echo with in normal limit Hospital course: 57 year old woman with history of hypertension, alcohol abuse was sent from [place] for evaluation of altered mental status. Patient is back to baseline. Acute metabolic encephalopathy Stroke work up negative. Neurology saw her and r/o stroke Alcohol abuse - Patient has elevated AST, and hepatomegaly with fatty infiltration - Patient is counseled about cessation of alcohol Hyponatremia - Corrected with IV fluids. Hyperlipidemia Patient was seen and evaluated this morning. patient was alert and oriented. No focal weakness. patient has hyperlipidemia i will differ to give her statin at this time because of alcoholic hepatitis and can be followed with PCP and start once the transamnitis resolved. Patient discharged home and resources are given for cessation of alcohol. Disposition: DC- TO HOME OR SELFCARE Time spent for discharge: 32 minutes - Discharge Diagnoses (1) Alcohol withdrawal delirium, acute, hyperactive Status: Acute (2) Acute hepatic encephalopathy Status: Resolved (3) TIA (transient ischemic attack) Status: Ruled-out Qualifiers: Transient cerebral ischemia type: unspecified Qualified Code(s): G45.9 - Transient cerebral ischemic attack, unspecified (4) Hyperlipidemia Status: Acute (5) Alcohol abuse Status: Acute Core Measure Documentation - Palliative Care Palliative Care/ Comfort Measures: Not Applicable - Core Measures Any of the following diagnoses?: none Exam - Physical Exam Narrative exam: Not in cardiopulmonary distress. The patient appeared well nourished and normally developed. Vital signs as documented. Head exam is unremarkable. No scleral icterus . Neck is without jugular venous distension, thyromegaly, or carotid bruits. Lungs are clear to auscultation. Cardiac exam reveals regular rate and Rhythm. First and second heart sounds normal. No murmurs, rubs or gallops. Abdominal exam reveals normal bowel sounds, no masses, no organomegaly and no aortic enlargement. Extremities are nonedematous and both femoral and pedal pulses are normal. 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 Patient judgment sounds intact. - Constitutional Vitals: Temp Pulse Resp BP Pulse Ox 99.1 F 102 H 20 129/80 98 12/28/17 05:54 12/28/17 05:54 12/28/17 05:54 12/28/17 05:54 12/28/17 05:54 Plan Activity: no restrictions Weight Bearing Status: Full Weight Bearing Diet: low fat, low cholesterol Additional Instructions: Please follow at [facility]2 [facility] Follow up with: PRIMARY CARE, [Primary Care Provider] - 3-5 Days Prescriptions: Cyclobenzaprine HCl [Flexeril 5 MG TAB] 5 mg PO PRN #12 tablet Folic Acid [Folvite] 1 mg PO QDAY #30 tablet Thiamine [Vitamin B-1] 100 mg PO QDAY #15 tablet
[2017-12-28] MEDS: VITAMIN B-1 PO SCH (10:15)
[2017-12-28] MEDS: FOLVITE PO SCH (10:15)
[2017-12-28] MEDS: ASPIRIN PO SCH (10:16)
[2017-12-28] MEDS: LOVENOX SUB-Q SCH (10:16)
--- NOTE | 2017-12-28 12:18 | Consultation ---
History of Present Illness - Reason for Consult Consult date: 12/28/17 Reason for consult: Mental Health Evaluation Requesting physician: ROSALINE SCHROEDER - Chief Complaint Chief complaint: "I do want to stop drinking" - History of Present Psychiatric Illness 57 y.o. AA female presenting to the ER for AMS. Psychiatry was consulted to see the patient for AMS. Today the patient is calm and cooperative during the assessment. The patient stated that she has a long hx of alcohol abuse (etoh). She stated having a drinking (etoh) problem for many years. She stated that she drink because she enjoys it, but is aware that excessive alcohol consumption can cause serious health issues. Also, she is aware of her elevated LF's. She stated that she was a patient at [facility] for "rehab for alcohol." She was able to ID the current/past [place] President, state her location, and recall 2/ 3 numbers within 5 mins. She stated that she plan to follow up with rehab services once discharged. She denies depression and any manic episodes in the past. She denies SI/HI's and AVH's. She denies erratic sleep and a poor appetite. She denies recreational drug use. Medications and Allergies Allergies Allergy/AdvReac Type Severity Reaction Status Date / Time No Known Allergies Allergy Unverified 06/19/16 17:33 Home Medications Medication Instructions Recorded Confirmed Last Taken Type Cyclobenzaprine HCl [Flexeril 5 MG 5 mg PO PRN #12 tablet 12/28/17 Unknown Rx TAB] Folic Acid [Folvite] 1 mg PO QDAY #30 tablet 12/28/17 Unknown Rx Thiamine [Vitamin B-1] 100 mg PO QDAY #15 tablet 12/28/17 Unknown Rx Active Meds: Active Medications Acetaminophen (Tylenol) 650 mg PO Q4H PRN PRN Reason: Pain, Mild (1-3) Aspirin (Aspirin) 325 mg PO QDAY [facility] Last Admin: 12/28/17 10:16 Dose: 325 mg Bisacodyl (Dulcolax) 10 mg NM QDAY PRN PRN Reason: Constipation Enoxaparin Sodium (Lovenox) 40 mg SUB-Q QDAY [facility] Last Admin: 12/28/17 10:16 Dose: 40 mg Folic Acid (Folvite) 1 mg PO QDAY [facility] Last Admin: 12/28/17 10:15 Dose: 1 mg Hydralazine HCl (Apresoline) 10 mg IV Q4HR PRN PRN Reason: Blood Pressure Last Admin: 12/27/17 05:53 Dose: 10 mg Sodium Chloride (Nacl 0.9% 1000 Ml) 1,000 mls @ 100 mls/hr IV DIRECT STEPAN Lorazepam (Ativan) 2 mg IV Q1HR PRN PRN Reason: CIWA-Ar 8-15 Last Admin: 12/26/17 21:28 Dose: 2 mg Lorazepam (Ativan) 4 mg IV Q1HR PRN PRN Reason: CIWA-Ar 16-25 Last Admin: 12/27/17 05:53 Dose: 4 mg Magnesium Hydroxide (Milk Of Magnesia) 30 ml PO Q4H PRN PRN Reason: Constipation Ondansetron HCl (Zofran) 4 mg IV Q8H PRN PRN Reason: N/V unrelieved by Reglan Pravastatin Sodium (Pravachol) 20 mg PO QHS [facility] Last Admin: 12/27/17 22:08 Dose: 20 mg Sodium Chloride (Sodium Chloride Flush Syringe 10 Ml) 10 ml IV PRN PRN PRN Reason: LINE FLUSH Thiamine HCl (Vitamin B-1) 100 mg PO QDAY [facility] Last Admin: 12/28/17 10:15 Dose: 100 mg Past psychiatric history - Past Medical History Past Medical History: hypertension Past Surgical History: No surgical history - past Psychiatric treatment and history psychiatric treatment history: Denies a psy hx and a fam psy hx. - Social History Social history: Lives alone Mental Status Exam - Vital signs Last Vital Signs Temp 99.1 F 12/28/17 05:54 Pulse 102 H 12/28/17 05:54 Resp 20 12/28/17 05:54 BP 129/80 12/28/17 05:54 Pulse Ox 98 12/28/17 05:54 - Exam Narrative exam: MSE: Appearance: calm, cooperative Behavior: regular eye contact Speech: regular rate and tone Mood: "okay" Affect: congruent to mood Thought Process: linear Thought Content: denies SI/HI's and AVH's Motor Activity: lying in bed Cognition: A/O x 3 Insight: appropriate Judgment: appropriate Results Result Diagrams: 12/27/17 05:28 12/28/17 06:04 Abnormal lab results 12/28/17 Range/Units 06:04 Sodium 136 L (137-145) mmol/L Carbon Dioxide 21 L (22-30) mmol/L BUN 3 L (7-17) mg/dL Creatinine 0.2 L (0.7-1.2) mg/dL Total Bilirubin 5.20 H (0.1-1.2) mg/dL AST 110 H (5-40) units/L Alkaline Phosphatase 243 H (35-129) units/L Albumin 2.8 L (3.9-5) g/dL All other labs normal. Assessment and Plan Assessment and plan: Impression: Hx of Alcohol Abuse. Today the patient is calm and cooperative during the assessment. Mild tremors noted during assessment. Recommendation/Plan: Rescind 1013. The patient can follow up with [facility] for outpatient rehab services. Discussed the importance to abstain from alcohol consumption (etoh) with patient.
[2017-12-28 14:23] VITALS: BP 128/76
== END 2017-12-28 14:50 | disposition home or self-care (01) | DRG 441 ==
LOC: ED 17:10 → EEVIPCON 23:29 → 4A 23:29
PROVIDERS: ADMIT Internal Medicine; ATTEND Internal Medicine
DX: K72.00 Acute and subacute hepatic failure without coma (principal); G93.41 Metabolic encephalopathy; G45.9 Transient cerebral ischemic attack, unspecified; E87.1 Hypo-osmolality and hyponatremia; F10.231 Alcohol dependence with withdrawal delirium; K70.10 Alcoholic hepatitis without ascites; F32.9 Major depressive disorder, single episode, unspecified; I10 Essential (primary) hypertension; E78.5 Hyperlipidemia, unspecified
CPT/HCPCS: 36415; 70450; 71045; 76705; 80053; 80061; 80307; 80320; 81001; 82140; 82962; 83735; 84443; 85025; 85610; 85730; 93005; 93010; 93306; 93880; A9270-GY; G0480; J0360; J1650; J2060; J3475